=== PATIENT | male | born 1970 | race Caucasian/White ===

== ENCOUNTER → 2021-06-19 | Day surgery (SDC) | payer BC ==
[~2021-06-19] MED LIST: CALCIUM PO; ECHINACEA PO; FENTANYL CITRATE/PF 100MCG/2 ML INJ ONE; GLUCOSAMINE &1 EACH PO; LISINOPRIL10 MG PO; MIDAZOLAM HCL 5 MG/ML VIAL ONE; OLIVE LEAF EXTRACT PO; PROPOFOL IV EMULSION 10 MG/ML 20 ML VIAL ONE; SELENIUM PO; VITAMIN B12-FO1 EACH PO; VITAMIN C PO; ZINC PO; [UNRECOGNIZED DRUG - OTHER] PO
[2021-06-19 10:05] VITALS: BP 97/65
== END | disposition home or self-care (01) ==
LOC: OR 09:29
PROVIDERS: ATTEND Internal Medicine Gastroenterology
DX: Z12.11 Encounter for screening for malignant neoplasm of colon (principal); D12.5 Benign neoplasm of sigmoid colon; K57.30 Diverticulosis of large intestine without perforation or abscess without bleeding; K64.8 Other hemorrhoids; G47.33 Obstructive sleep apnea (adult) (pediatric); I10 Essential (primary) hypertension; F17.210 Nicotine dependence, cigarettes, uncomplicated; Z01.810 Encounter for preprocedural cardiovascular examination; Z01.812 Encounter for preprocedural laboratory examination; Z20.822 Contact with and (suspected) exposure to COVID-19; Z79.899 Other long term (current) drug therapy; Z68.35 Body mass index [BMI] 35.0-35.9, adult; Z71.6 Tobacco abuse counseling
CPT/HCPCS: 45385; 93005; J2250; J2704; J3010; U0002